=== PATIENT | male | born 1990 | race Hispanic/Latino ===

== ENCOUNTER 2017-04-05 16:31 | Emergency (ER) | payer MEDICAID, OTHER ==
[2017-04-05 16:40] VITALS: BP 123/69; PULSE 91; RESP 14; TEMP 98; O2SAT 100
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
== END 2017-04-05 18:10 | disposition home or self-care (01) ==
LOC: H.ER 16:31
DX: R19.7 Diarrhea, unspecified (principal)